=== PATIENT | female | born 1975 ===

== ENCOUNTER → 2020-04-23 | Outpatient (CLI) | payer BC ==
[2020-04-23 14:19] VITALS: BP 135/82; PULSE 64; RESP 18; TEMP 98.2
--- NOTE | 2020-04-23 14:38 | P.HPBAR ---
Bariatric H&P - History & Physicial H&P Date: 04/23/20 History & Physicial: Visit/CC: initial visit; previous band Patient initial contact: Initial weight: Initial weight in pounds: Height: 5 ft 1.5 in Initial BMI: Last weight: Current weight: 85.774 kg Current weight in pounds: 189.60 Current BMI: 35 [place] body weight (based on NIH guidelines): 52.73 kg Excess body weight loss: The patient is a 44 year-old F who presents for Bariatric Assessment. Patient presents today for bariatric follow-up. She's had previous LAP-BAND surgery [place]. This was performed proximal 12 years ago. She's not had an adjustment in 8-10 years. She has complaints of dysphagia and GERD. Past Medical History Past Medical History: GERD/Reflux, Hypertension History of Any Multi-Drug Resistant Organisms: None Reported Past Surgical History: Bariatric Surgery, Hysterectomy Additional Past Surgical History / Comment(s): lap band 2009 in [place] Past Anesthesia/Blood Transfusion Reactions: No Reported Reaction Past Psychological History: No Psychological Hx Reported Smoking Status: Former smoker Past Alcohol Use History: Occasional Additional Past Alcohol Use History / Comment(s): quit smoking 2008 Past Drug Use History: None Reported Surgical - Exam Vital Signs Temp Pulse Resp BP 98.2 F 64 18 135/82 04/23/20 14:10 04/23/20 14:10 04/23/20 14:10 04/23/20 14:10 - General well developed, well nourished, no distress - Eyes PERRL - ENT normal pinna - Neck no masses - Respiratory normal expansion - Cardiovascular Rhythm: regular - Abdomen Abdomen: soft, non tender Bariatric Assessment & Plan Plan: Dysphagia. Patient LAP-BAND was adjusted. She had 1 mL remove her band. She has 2 mL in the band. Patient was scheduled for EGD. We will attempt to have insurance authorization performed for conversion sleeve gastrectomy. Bariatric Checklist Checklist: Plan: Checklist: EGD: 1. Hiatal hernia: 2. H. Pylori: HgbA1c: Vitamin D: Smoking: Primary care physician referral: Dr. Roth Psychiatry clearance: Cardiology clearance: Sleep study: Diet journal: VTE risk score: VTE risk level: Rehab needs at discharge:
[2020-04-24 10:36] VITALS: BMI 35.1
== END | disposition home or self-care (01) ==
LOC: BARWHC3 13:51
PROVIDERS: ATTEND Surgery
DX: Z46.51 Encounter for fitting and adjustment of gastric lap band (principal); R13.10 Dysphagia, unspecified
CPT/HCPCS: 99202

== ENCOUNTER 2020-05-24 08:38 | Day surgery (SDC) | payer BC ==
[2020-05-22 14:04] VITALS: BMI 35.1
[~2020-05-24 08:38] MED LIST: LACTATED RINGERS 1,000 ML IV SCH; LIDOCAINE 1% (10MG/ML) FOR IV START INTRADERMA PRN
[2020-05-24 09:55] VITALS: RESP 16; TEMP 98.2
[2020-05-24] MEDS ORDERED: PROPOFOL 10 MG/ML 20 ML VIAL IV ONE (10:34)
--- NOTE | 2020-05-24 10:35 | P.GSHP ---
History of Present Illness H&P Date: 05/24/20 Chief Complaint: GERD, morbid obesity This a 44-year-old female who presents today for EGD. She is undergoing workup for weight loss surgery. Patient issues with GERD. Her BMI is 35. Past Medical History Past Medical History: GERD/Reflux, Hypertension History of Any Multi-Drug Resistant Organisms: None Reported Past Surgical History: Bariatric Surgery, Hysterectomy Additional Past Surgical History / Comment(s): lap band 2009 in [place] Past Anesthesia/Blood Transfusion Reactions: No Reported Reaction Smoking Status: Former smoker Medications and Allergies Home Medications Medication Instructions Recorded Confirmed Type DULoxetine HCL [Cymbalta] 20 mg PO BID 04/24/20 05/22/20 History busPIRone HCL 15 mg PO BID 04/24/20 05/22/20 History Allergies Allergy/AdvReac Type Severity Reaction Status Date / Time acetaminophen [From [place]] Allergy Rash/Hives Verified 05/24/20 09:37 hydrocodone [From [place]] Allergy Rash/Hives Verified 05/24/20 09:37 Surgical - Exam Vital Signs Temp Pulse Resp BP Pulse Ox 98.2 F 65 16 127/66 99 05/24/20 09:41 05/24/20 09:41 05/24/20 09:41 05/24/20 09:41 05/24/20 09:41 - General well developed, well nourished, no distress - Eyes PERRL - ENT normal pinna - Neck no masses - Respiratory normal expansion - Cardiovascular Rhythm: regular - Abdomen Abdomen: soft, non tender Assessment and Plan Assessment: GERD we'll perform EGD. Morbid obesity, BMI is 35.
--- NOTE | 2020-05-24 10:44 | P.OP ---
Date of Procedure: 05/24/20 Preoperative Diagnosis: GERD, dysphagia Postoperative Diagnosis: Antral gastritis Mild esophagitis LAP-BAND system without inflammation or erosion Procedure(s) Performed: EGD Anesthesia: MAC Surgeon: Rafael Adams Pathology: other (Antrum, esophagus) Condition: stable Disposition: PACU Description of Procedure: The patient's placed on the endoscopy table in the lateral position. She received IV sedation. The gastroscope placed oropharynx and passed into the esophagus. Scope then placed through the pylorus. First and second portion of duodenum appeared normal. Scope was then brought back the antrum this is mildly inflamed. A biopsy was performed. The scope was then retroflexed and remainder of the stomach appeared normal. Patient presents Mack device this without evidence of infection erosion. The GE junction was at 40 cm the distal esophagus appeared inflamed. A biopsies performed. The proximal esophagus appeared normal. Scope was withdrawn for patient.
[2020-05-24 11:04] VITALS: BP 141/67; PULSE 69
== END 2020-05-24 11:51 | disposition home or self-care (01) ==
LOC: ORWHC2ENDO 08:38
PROVIDERS: ATTEND Surgery
DX: K29.70 Gastritis, unspecified, without bleeding (principal); K21.00 Gastro-esophageal reflux disease with esophagitis, without bleeding; E66.01 Morbid (severe) obesity due to excess calories; I10 Essential (primary) hypertension; F41.9 Anxiety disorder, unspecified; Z88.6 Allergy status to analgesic agent; Z88.5 Allergy status to narcotic agent; Z68.35 Body mass index [BMI] 35.0-35.9, adult; Z98.84 Bariatric surgery status; Z90.710 Acquired absence of both cervix and uterus; Z87.891 Personal history of nicotine dependence; Z79.899 Other long term (current) drug therapy
CPT/HCPCS: 88305; 43239; J2704

== ENCOUNTER → 2020-06-04 | Outpatient (CLI) | payer BC ==
[2020-06-04 14:14] VITALS: BP 142/67; PULSE 70; RESP 18; TEMP 97.9; BMI 35.4
--- NOTE | 2020-06-04 14:23 | P.HPBAR ---
Bariatric H&P - History & Physicial H&P Date: 06/04/20 History & Physicial: Visit/CC: follow up Patient initial contact: Initial weight: Initial weight in pounds: Height: 5 ft 1.5 in Initial BMI: Last weight: Current weight: 86.636 kg Current weight in pounds: 191.00 Current BMI: 35.4 [place] body weight (based on NIH guidelines): 48.761 kg Excess body weight loss: The patient is a 44 year-old F who presents for Bariatric Assessment. Patient presents today for lab band follow. Patient has issues with dysphagia. She is requesting to have her LAP-BAND device removed and convert to sleeve gastrectomy. Patient's had chronic issues with GERD and dysphagia. She is unable have her band adjusted. Past Medical History Past Medical History: GERD/Reflux, Hypertension History of Any Multi-Drug Resistant Organisms: None Reported Past Surgical History: Bariatric Surgery, Hysterectomy Additional Past Surgical History / Comment(s): lap band 2009 in [place] Past Anesthesia/Blood Transfusion Reactions: No Reported Reaction Past Psychological History: No Psychological Hx Reported Smoking Status: Former smoker Past Alcohol Use History: Occasional Additional Past Alcohol Use History / Comment(s): quit smoking 2008 Past Drug Use History: None Reported Surgical - Exam Vital Signs Temp Pulse Resp BP 97.9 F 70 18 142/67 06/04/20 14:10 06/04/20 14:10 06/04/20 14:10 06/04/20 14:10 - General well developed, well nourished, no distress - Eyes PERRL - ENT normal pinna - Neck no masses - Respiratory normal expansion - Cardiovascular Rhythm: regular - Abdomen Abdomen: soft, non tender Bariatric Assessment & Plan Plan: Chronic GERD and dysphagia. Patient will attempt Insurance authorization per formed for conversion sleeve gastrectomy due to severe GERD and dysphagia. Bariatric Checklist Checklist: Plan: Checklist: EGD: 1. Hiatal hernia: 2. H. Pylori: HgbA1c: Vitamin D: Smoking: Primary care physician referral: Dr. Roth Psychiatry clearance: Cardiology clearance: Sleep study: Diet journal: VTE risk score: VTE risk level: Rehab needs at discharge:
== END | disposition home or self-care (01) ==
LOC: BARWHC3 13:51
PROVIDERS: ATTEND Surgery
DX: Z46.51 Encounter for fitting and adjustment of gastric lap band (principal); K21.9 Gastro-esophageal reflux disease without esophagitis; F17.200 Nicotine dependence, unspecified, uncomplicated; Z98.84 Bariatric surgery status; Z90.710 Acquired absence of both cervix and uterus
CPT/HCPCS: 99211

== ENCOUNTER → 2020-06-18 | Outpatient (CLI) | payer BC ==
[2020-06-18 14:09] VITALS: BMI 36.2
== END | disposition home or self-care (01) ==
LOC: BARWHC3 08:43
PROVIDERS: ATTEND Surgery
DX: E66.01 Morbid (severe) obesity due to excess calories (principal); Z71.3 Dietary counseling and surveillance; Z68.36 Body mass index [BMI] 36.0-36.9, adult
CPT/HCPCS: 97804

== ENCOUNTER → 2020-08-06 | Outpatient (CLI) | payer BC ==
[2020-08-06 15:05] VITALS: BP 135/69; PULSE 61; TEMP 98; BMI 36.6
--- NOTE | 2020-08-06 15:26 | P.HPBAR ---
Bariatric H&P - History & Physicial H&P Date: 08/06/20 History & Physicial: Visit/CC: presurgical visit Patient initial contact: Initial weight: Initial weight in pounds: Height: 5 ft 1.5 in Initial BMI: Last weight: Current weight: 89.358 kg Current weight in pounds: 197.00 Current BMI: 36.6 [place] body weight (based on NIH guidelines): 48.761 kg Excess body weight loss: The patient is a 44 year-old F who presents for Bariatric Assessment. Patient presents today for presurgical consultation. She is scheduled for surgery in 2 weeks. Her BMI is 37. She has an excellent understanding of the lap scopic sleeve gastrectomy. Past Medical History Past Medical History: GERD/Reflux, Hypertension History of Any Multi-Drug Resistant Organisms: None Reported Past Surgical History: Bariatric Surgery, Hysterectomy Additional Past Surgical History / Comment(s): lap band 2009 in [place] Past Anesthesia/Blood Transfusion Reactions: No Reported Reaction Smoking Status: Former smoker Surgical - Exam Vital Signs Temp Pulse BP 98.0 F 61 135/69 08/06/20 15:04 08/06/20 15:04 08/06/20 15:04 Bariatric Checklist Checklist: Plan: Checklist: EGD: 1. Hiatal hernia: 2. H. Pylori: HgbA1c: Vitamin D: Smoking: Primary care physician referral: Dr. Roth Psychiatry clearance: Cardiology clearance: Sleep study: Diet journal: VTE risk score: VTE risk level: Rehab needs at discharge:
== END ==
LOC: BARWHC3 13:35
PROVIDERS: ATTEND Surgery
DX: Z01.818 Encounter for other preprocedural examination (principal); I10 Essential (primary) hypertension; K21.9 Gastro-esophageal reflux disease without esophagitis; Z98.84 Bariatric surgery status; Z87.891 Personal history of nicotine dependence; Z79.899 Other long term (current) drug therapy
CPT/HCPCS: 99211

== ENCOUNTER → 2020-08-06 | Outpatient (CLI) | payer BC ==
[2020-08-06 15:12] LABS: Basophils % (A) 1 %; Eosinophils # (A) 0.1 k/uL (0-0.7); Eosinophils % (A) 1 %; HCT 42.2 % (34.0-46.0); HGB 14.1 gm/dL (11.4-16.0); Lymphocytes # (A) 2.2 k/uL (1.0-4.8); Lymphocytes % (A) 32 %; MCH 30.6 pg (25.0-35.0); MCHC 33.3 g/dL (31.0-37.0); MCV 91.9 fL (80.0-100.0); Mean Platelet Volume 7.2; Monocytes # (A) 0.3 k/uL (0-1.0); Monocytes % (A) 4 %; Neutrophils # (A) 4.3 k/uL (1.3-7.7); Neutrophils % (A) 61 %; Platelet Count 318 k/uL (150-450); RBC 4.59 m/uL (3.80-5.40)
[2020-08-06 15:35] LABS: ALT 12 U/L (4-34); AST 27 U/L (14-36); African American GFR (CKD) >90 (>60 ml/min/1.73 sqM); Albumin 4.5 g/dL (3.5-5.0); Alkaline Phosphatase 80 U/L (38-126); Anion Gap 7 mmol/L; Blood Urea Nitrogen 11 mg/dL (7-17); Carbon Dioxide 32 mmol/L (22-30); Chloride 100 mmol/L (98-107); Glucose 99 mg/dL (74-99); Non-African American GFR(CKD) >90 (>60 ml/min/1.73 sqM); Potassium 4.1 mmol/L (3.5-5.1); Sodium 139 mmol/L (137-145); Total Bilirubin 0.5 mg/dL (0.2-1.3); Total Protein 7.5 g/dL (6.3-8.2)
[2020-08-07 01:34] LABS: Hemoglobin A1C 5.5 % (4.0-6.0)
== END | disposition home or self-care (01) ==
LOC: LABPAT 14:32
PROVIDERS: ATTEND Surgery
DX: Z01.812 Encounter for preprocedural laboratory examination (principal)
CPT/HCPCS: 36415; 80053; 83036; 85025; 93005

== ENCOUNTER 2020-08-21 06:59 | Inpatient (IN) | payer BC ==
[~2020-08-21 06:59] MED LIST changes: +DEXAMETHASONE SOD PHOSPHATE 4 MG/ML 1 ML VIAL IV ONE; +ENOXAPARIN 40 MG/0.4 ML SYRINGE SQ PRN; -LACTATED RINGERS 1,000 ML IV SCH; +MIDAZOLAM 2 MG/2 ML VIAL IV PRN; +ONDANSETRON 4 MG/2 ML VIAL IVP ONE
[2020-08-21] MEDS: LACTATED RINGERS 1,000 ML IV SCH (07:36)
[2020-08-21] MEDS ORDERED: fentaNYL (PF) 50 MCG/ML 2 ML AMP IV ONE (08:19)
--- NOTE | 2020-08-21 08:38 | P.ANPRN ---
Procedure Note - Anesthesia - Nerve Block Performed Bilateral Erector Spinae Single Time Out Performed: Yes Date of Procedure: 08/21/20 Procedure Start Time: :18 Procedure Stop Time: : Location of Patient: PreOp Indication: Requested by Surgeon Specifically requested for management of pain by DrKrunal: Rafael Adams Sedation Type: Sedate with meaningful contact maintained Preparation: Sterile Prep Position: Prone Needle Types: Pajunk Needle Gauge: 21 Ultrasound used to visualize needle placement: Yes Ultrasound used to observe medication spread: Yes Injectate: Other (see comment) (ropivacaine 0.25% 30 ml per side plus dexamethasone 4 mg per side) Blood Aspirated: No Pain Paresthesia on Injection Noted: No Resistance on Injection: Normal Image Stored and Saved: Yes Events: Uneventful and Well Tolerated (thae block done as part of multimodel pain management ,to minimize post operative opioid use)
--- NOTE | 2020-08-21 09:01 | P.GSHP ---
History of Present Illness H&P Date: 08/21/20 Chief Complaint: Morbid obesity This is a 44-year-old female who presents today for laparoscopic sleeve gastrectomy. Patient has had lifetime problems obesity. Patient has developed severe colitis. Her BMI is 35. Patient understands risks surgery including gastric sleeve obstruction, scarring bleeding and perforation. Past Medical History Past Medical History: Asthma, GERD/Reflux, Hypertension Additional Past Medical History / Comment(s): CLUSTER HEADACHES, LOWER BACK PAIN, HX PALPITATIONS, VARICOSE VEINS, KIDNEY STONES. History of Any Multi-Drug Resistant Organisms: None Reported Past Surgical History: Bariatric Surgery, Hysterectomy Additional Past Surgical History / Comment(s): lap band 2009 in [place], lithotripsy. Past Anesthesia/Blood Transfusion Reactions: No Reported Reaction, Family History of Problems w/ Anesthesia Additional Past Anesthesia/Blood Transfusion Reaction / Comment(s): son=severe ponv Past Psychological History: Anxiety Smoking Status: Former smoker Past Alcohol Use History: Rare Additional Past Alcohol Use History / Comment(s): quit smoking 2008, smoked off and on since 17 yrs old, 2-3 cigarettes/day Past Drug Use History: None Reported - Past Family History Mother Family Medical History: Cancer Additional Family Medical History / Comment(s): breast cancer Father Family Medical History: Deep Vein Thrombosis (DVT) Medications and Allergies Home Medications Medication Instructions Recorded Confirmed Type DULoxetine HCL [Cymbalta] 20 mg PO BID 04/24/20 08/21/20 History busPIRone HCL 15 mg PO BID PRN 04/24/20 08/21/20 History Hydrochlorothiazide 12.5 mg PO DAILY 06/18/20 08/21/20 History [hydroCHLOROthiazide] Albuterol Inhaler [Ventolin Hfa 1 puff INHALATION DIRECTED PRN 08/15/20 08/21/20 History Inhaler] Albuterol Nebulizer 1 dose INHALATION DIRECTED PRN 08/15/20 08/21/20 History Ascorbic Acid [Vitamin C] 250 mg PO DAILY 08/15/20 08/21/20 History [id number] 2 each PO DIRECTED PRN 08/15/20 08/21/20 History [Excedrin] Cholecalciferol (Vitamin D3) 4,000 unit PO DAILY 08/15/20 08/21/20 History [Vitamin D3 (4,000 Iu)] Omeprazole Magnesium [PriLOSEC OTC] 20 mg PO DAILY PRN 08/15/20 08/21/20 History Allergies Allergy/AdvReac Type Severity Reaction Status Date / Time hydrocodone [From [place]] Allergy Itching Verified 08/21/20 07:13 Surgical - Exam Vital Signs Temp Pulse Resp BP Pulse Ox 97.2 F L 71 16 145/66 96 08/21/20 07:35 08/21/20 07:35 08/21/20 07:35 08/21/20 07:35 08/21/20 07:35 - General well developed, well nourished, no distress - Eyes PERRL - ENT normal pinna - Neck no masses - Respiratory normal expansion - Cardiovascular Rhythm: regular - Abdomen Abdomen: soft, non tender Assessment and Plan Assessment: RBC, BMI 35. Patient will undergo laparoscopic sleeve gastrectomy today.
[2020-08-21] MEDS ORDERED: ROCURONIUM 10 MG/ML (5 ML VIAL) IV ONE (09:23)
[2020-08-21] MEDS ORDERED: PROPOFOL 10 MG/ML 20 ML VIAL IV ONE (09:23)
[2020-08-21] MEDS ORDERED: GLYCOPYRROLATE 0.2 MG/ML 2 ML VIAL ONE (09:23)
[2020-08-21] MEDS ORDERED: KETAMINE 10 MG/ML 20 ML VIAL ONE (09:23)
[2020-08-21] MEDS ORDERED: MIDAZOLAM 2 MG/2 ML VIAL ONE (09:23)
[2020-08-21] MEDS ORDERED: SODIUM CHLORIDE 0.9% (PF) 10 ML VIAL ONE (09:23)
[2020-08-21] MEDS ORDERED: NEOSTIGMINE 1 MG/ML 10 ML VIAL ONE (09:23)
[2020-08-21] MEDS ORDERED: LIDOCAINE 1% INJ 10MG/ML (20 ML MDV) ONE (09:23)
[2020-08-21] MEDS ORDERED: SUCCINYLCHOLINE CHLORIDE 100 MG/5 ML SYR IV ONE (09:23)
[2020-08-21] MEDS ORDERED: KETOROLAC 15 MG/ML 1 ML VIAL ONE (09:23)
[2020-08-21] MEDS ORDERED: fentaNYL (PF) 50 MCG/ML 2 ML AMP ONE (09:23)
[2020-08-21] MEDS ORDERED: DEXAMETHASONE SOD PHOSPHATE 4 MG/ML 1 ML VIAL ONE (09:23)
[2020-08-21] MEDS ORDERED: ROPIVACAINE 5 MG/ML 30 ML VIAL ONE (09:23)
[2020-08-21] MEDS ORDERED: BUPIVACAIN-EPI 0.5%-1:200,000 30 ML VIAL SQ ONE (09:51)
[2020-08-21] MEDS ORDERED: LACTATED RINGERS 1,000 ML IV ONE ×3 (10:00→12:10)
[2020-08-21] MEDS ORDERED: diphenhydrAMINE 50 MG/ML 1 ML VIAL IVP PRN (11:13)
[2020-08-21] MEDS ORDERED: HYOSCYAMINE ORAL DROPS 1.875 MG/15 ML BOTTLE PO PRN (11:13)
[2020-08-21] MEDS ORDERED: ONDANSETRON 4 MG/2 ML VIAL IVP PRN (11:13)
[2020-08-21] MEDS ORDERED: SIMETHICONE 40 MG/0.6 ML DROPS 2,000 MG/30 ML BOTTLE PO PRN (11:13)
[2020-08-21] MEDS ORDERED: NALOXONE 0.4 MG/ML 1 ML VIAL IV PRN (11:13)
--- NOTE | 2020-08-21 11:13 | P.OP ---
Date of Procedure: 08/21/20 Preoperative Diagnosis: Morbid obesity GERD, dysphagia Postoperative Diagnosis: Morbid obesity GERD, dysphagia Procedure(s) Performed: Laparoscopic removal of LAP-BAND system Gastric sleeve Anesthesia: HAL Surgeon: Rafael Adams Estimated Blood Loss (ml): 10 Pathology: other (Stomach) Condition: stable Disposition: PACU Description of Procedure: The patient was placed on the operating room table in the supine position. She received general anesthesia and then was placed in dorsal lithotomy position. Her abdomen was prepped and draped in sterile fashion. The skin incision sites were anesthetized 1% local Xylocaine. The skin was incised the LAP-BAND port site. Using blunt and sharp dissection with cautery the LAP-BAND port was dissected free. It is noticeable PEG tube was broken. Using a 5 mm optical trocar the pleural cavities and under direct visualization. The abdomen was insufflated after adequate insufflation another fibrillar trocar is placed in the right epigastric position and then a fibrillar trocar is placed in the right lateral and left lateral position and then a 15 mm trochars placed at the super umbilical position. The LAP-BAND device was visualized. The adhesions LAP-BAND device wasn't cut and then the LAP-BAND anterior gastric plication was divided in her sharp dissection. Care was taken to identify and preserve stomach. The LAP-BAND was then cut and then withdrawn from the stomach extracted through the 15 mm trocar site. The greater curvature of the stomach was then dissected using the Harmonic scissors. The dissection occurred approximately 5 cm from the pylorus to the level of the left edita. There was no hiatal hernia seen. At this point a 40- [place] bougie dilator was placed the oropharynx and passed into the esophagus and into the stomach by the PULMONOLOGY PHYSICIAN. The sleeve gastrectomy was performed by using the powered echelon stapler with a seam guard buttress material. Sequential firings of the stapler were performed. The gastric remnant was then brought out through the 15 mm trocar site. The dilator was withdrawn. And a orogastric tube was replaced into the stomach. The stomach was insufflated with 200 mL of methylene blue normal saline. There was no evidence of extravasation. The abdomen was irrigated there is no bleeding seen. The Godwin-Nayla device was used to close the 15 mm trocar with 0 Vicryl. Skin was closed with interrupted 3-0 Monocryl sutures once the trochars withdrawn. Dermabond dressing was applied. Patient was sent to recovery in stable condition.
--- NOTE | 2020-08-21 11:17 | XR ---
EXAMINATION TYPE: XR abdomen 1V DATE OF EXAM: 08/21/2020 COMPARISON: NONE HISTORY: Possible foreign body TECHNIQUE: One view abdominal series FINDINGS: The osseous structures are intact. The bowel gas pattern is nonspecific. There is a metallic density overlying the right abdomen suspicious for foreign body.. Report was immediately called to the OR ro om at 11:14 AM 08/21/2020. IMPRESSION: 1. Findings are suggestive of foreign body involving the right lateral abdomen just superior to the i liac crest..
[2020-08-21] MEDS: HYDROmorphone 0.5 MG/0.5 ML SYRINGE IVP PRN ×4 (11:33→12:40)
[2020-08-21] MEDS ORDERED: ONDANSETRON 4 MG/2 ML VIAL IVP ONE (12:14)
[2020-08-21] MEDS ORDERED: ALBUTEROL HFA INHALER INHALATION PRN ×2 (12:51→13:16)
[2020-08-21] MEDS ORDERED: busPIRone HCl 5 MG TAB PO PRN (12:51)
[2020-08-21] MEDS ORDERED: ALBUTEROL NEBULIZER INHALATION PRN (12:51)
[2020-08-21] MEDS: KETOROLAC 15 MG/ML 1 ML VIAL IVP SCH ×2 (13:27→16:29)
--- NOTE | 2020-08-21 14:04 | P.CONS ---
History of Present Illness - Reason for Consult Hypertension - History of Present Illness Patient is a 44-year-old the female admitted for lab and removal and gastric sleeve surgery. Successfully underwent surgery patient is still comparing of a pain diffusely in the abdomen probably secondary to the a and gas inside the abdomen. Patient just received 2 mg of Dilaudid. Patient is bit nauseous as well. Patient is just drowsy at this time I evaluated the patient when she arrived to the floor from postop. Review of Systems REVIEW OF SYSTEMS: CONSTITUTIONAL: No fever, no malaise, no fatigue. HEENT: No recent visual problems or hearing problems. Denied any sore throat. CARDIOVASCULAR: No chest pain, orthopnea, PND, no palpitations, no syncope. PULMONARY: No shortness of breath, no cough, no hemoptysis. GASTROINTESTINAL: As mentioned in HPI NEUROLOGICAL: No headaches, no weakness, no numbness. HEMATOLOGICAL: Denies any bleeding or petechiae. GENITOURINARY: Denies any burning micturition, frequency, or urgency. MUSCULOSKELETAL/RHEUMATOLOGICAL: Denies any joint pain, swelling, or any muscle pain. ENDOCRINE: Denies any polyuria or polydipsia. The rest of the 14-point review of systems is negative. Past Medical History Past Medical History: Asthma, GERD/Reflux, Hypertension Additional Past Medical History / Comment(s): CLUSTER HEADACHES, LOWER BACK PAIN, HX PALPITATIONS, VARICOSE VEINS, KIDNEY STONES. History of Any Multi-Drug Resistant Organisms: None Reported Past Surgical History: Bariatric Surgery, Hysterectomy Additional Past Surgical History / Comment(s): lap band 2009 in [place], lithotripsy. lap band removal and gastric sleeve 08/21/2020 Past Anesthesia/Blood Transfusion Reactions: No Reported Reaction, Family History of Problems w/ Anesthesia Additional Past Anesthesia/Blood Transfusion Reaction / Comm: son=severe ponv Past Psychological History: Anxiety Smoking Status: Former smoker Past Alcohol Use History: Rare Additional Past Alcohol Use History / Comment(s): quit smoking 2008, smoked off and on since 17 yrs old, 2-3 cigarettes/day Past Drug Use History: None Reported - Past Family History Mother Family Medical History: Cancer Additional Family Medical History / Comment(s): breast cancer Father Family Medical History: Deep Vein Thrombosis (DVT) Medications and Allergies Home Medications Medication Instructions Recorded Confirmed Type DULoxetine HCL [Cymbalta] 20 mg PO BID 04/24/20 08/21/20 History busPIRone HCL 15 mg PO BID PRN 04/24/20 08/21/20 History Hydrochlorothiazide 12.5 mg PO DAILY 06/18/20 08/21/20 History [hydroCHLOROthiazide] Albuterol Inhaler [Ventolin Hfa 1 puff INHALATION DIRECTED PRN 08/15/20 08/21/20 History Inhaler] Albuterol Nebulizer 1 dose INHALATION DIRECTED PRN 08/15/20 08/21/20 History Ascorbic Acid [Vitamin C] 250 mg PO DAILY 08/15/20 08/21/20 History [id number] 2 each PO DIRECTED PRN 08/15/20 08/21/20 History [Excedrin] Cholecalciferol (Vitamin D3) 4,000 unit PO DAILY 08/15/20 08/21/20 History [Vitamin D3 (4,000 Iu)] Omeprazole Magnesium [PriLOSEC OTC] 20 mg PO DAILY PRN 08/15/20 08/21/20 History Allergies Allergy/AdvReac Type Severity Reaction Status Date / Time hydrocodone [From [employer]] Allergy Itching Verified 08/21/20 07:13 Physical Exam Vitals: Vital Signs Temp Pulse Pulse Resp BP Pulse Ox 08/21/20 13:05 81 18 131/56 97 08/21/20 12:50 79 16 124/70 98 08/21/20 12:30 70 16 119/53 98 08/21/20 12:15 76 16 133/50 98 08/21/20 12:00 72 16 138/57 98 08/21/20 11:45 69 16 133/60 97 08/21/20 11:30 65 18 140/58 99 08/21/20 11:14 97.7 F 70 12 141/59 99 08/21/20 08:36 68 16 132/61 95 08/21/20 07:35 97.2 F L 71 16 145/66 96 Intake and Output 08/20/20 08/21/20 08/21/20 22:59 06:59 14:59 Intake Total 2150 Output Total 20 Balance 2130 Intake: IV 2150 Output: Estimated Blood Loss 20 Other: Weight 87.2 kg PHYSICAL EXAMINATION: GENERAL: The patient is alert and oriented x3, patient is in distress because of abdominal pain and nausea. Well developed, well nourished. HEENT: Pupils are round and equally reacting to light. EOMI. No scleral icterus. No conjunctival pallor. Normocephalic, atraumatic. No pharyngeal erythema. No thyromegaly. CARDIOVASCULAR: S1 and S2 present. No murmurs, rubs, or gallops. PULMONARY: Chest is clear to auscultation, no wheezing or crackles. ABDOMEN: Distended sluggish bowel sounds mild diffuse tenderness no rebound or rigidity. MUSCULOSKELETAL: No joint swelling or deformity. EXTREMITIES: No cyanosis, clubbing, or pedal edema. NEUROLOGICAL: Gross neurological examination did not reveal any focal deficits. SKIN: No rashes. Assessment and Plan Plan: -Abdominal pain: Secondary to surgery which is expected to improve continue with present pain medications and antinausea medications. Ambulation will improve pain. -Hypertension: Patient is on hydrochlorothiazide which will be held temporarily to prevent perioperative hypotension patient is an elderly low-dose. -Gastroesophageal reflux disease: Patient will be continued on Protonix -Asthma without any acute exacerbation -Depression/anxiety: Continue her antidepressants. -DVT prophylaxis Lovenox
[2020-08-21] MEDS: ALBUTEROL NEBULIZED 2.5 MG/3 ML INHALATION SCH ×3 (16:08→19:57)
[2020-08-21] MEDS: 0.9% NACL WITH KCL 20 MEQ/L 1,000 ML IV SCH ×2 (16:31→22:49)
[2020-08-21] MEDS: HYDROmorphone 1 MG/ML 1 ML SYRINGE IVP PRN ×2 (19:09→22:28)
[2020-08-21] MEDS: ENOXAPARIN 40 MG/0.4 ML SYRINGE SQ SCH (22:28)
[2020-08-21] MEDS: DULoxetine HCL 20 MG CAPSULE.DR PO SCH (22:46)
[2020-08-22] MEDS: KETOROLAC 15 MG/ML 1 ML VIAL IVP SCH ×5 (01:39→23:07)
[2020-08-22] MEDS: 0.9% NACL WITH KCL 20 MEQ/L 1,000 ML IV SCH ×2 (01:45→05:36)
[2020-08-22] MEDS: HYDROmorphone 1 MG/ML 1 ML SYRINGE IVP PRN ×2 (03:02→10:41)
[2020-08-22] MEDS: LACTATED RINGERS 1,000 ML IV SCH (04:21)
[2020-08-22] MEDS: ALBUTEROL NEBULIZED 2.5 MG/3 ML INHALATION SCH ×4 (07:59→20:18)
[2020-08-22] MEDS: 1: MVI, ADULT NO.4 WITH VIT K 10 ML, THIAMINE 100 MG, FOLIC ACID 1 MG, POTASSIUM CHLORID IV SCH ×18 (08:52→21:07)
[2020-08-22] MEDS: PANTOPRAZOLE 40 MG/10 ML VIAL IV SCH (08:53)
[2020-08-22 09:09] LABS: Basophils # (A) 0.01 X 10*3/uL (0.00-0.10); Basophils % (A) 0.1 %; Eosinophils # (A) 0 X 10*3/uL (0.04-0.35); Eosinophils % (A) 0 %; HCT 36.8 % (37.2-46.3); Lymphocytes # (A) 1.62 X 10*3/uL (0.90-5.00); Lymphocytes % (A) 14.3 %; MCH 30.5 pg (27.0-32.0); MCHC 32.6 g/dL (32.0-37.0); MCV 93.4 fL (80.0-97.0); Mean Platelet Volume 10.7 fL (9.5-12.2); Monocytes # (A) 1.11 X 10*3/uL (0.20-1.00); Monocytes % (A) 9.8 %; Neutrophils # (A) 8.51 X 10*3/uL (1.80-7.70); Neutrophils % (A) 75.4 %; Platelet Count 349 X 10*3/uL (140-440); RBC 3.94 X 10*6/uL (4.10-5.20); RDW 12.6 % (11.5-14.5); WBC 11.29 X 10*3/uL (4.50-10.00)
[2020-08-22 09:10] LABS: African American GFR (CKD) 127.6 (60.0-200.0); Anion Gap 6.9 mmol/L (4.00-12.00); Calcium 8.5 mg/dL (8.7-10.3); Carbon Dioxide 29.1 mmol/L (21.6-31.8); Magnesium 1.8 mg/dL (1.5-2.4); Non-African American GFR(CKD) 110.1 (60.0-200.0); Phosphorus 3.2 mg/dL (2.4-5.1); Potassium 5.1 mmol/L (3.5-5.5)
[2020-08-22] MEDS: ENOXAPARIN 40 MG/0.4 ML SYRINGE SQ SCH ×2 (10:45→20:08)
[2020-08-22 11:33] VITALS: BMI 34.0
--- NOTE | 2020-08-22 11:44 | FL ---
EXAMINATION TYPE: FL UGI DATE OF EXAM: 08/22/2020 COMPARISON: None HISTORY: Postop bariatric surgery TECHNIQUE: A limited single contrast UGI study is performed. FINDINGS: Fluoroscopy time: 34 seconds Images: 104 Contrast passes from the distal esophagus through the gastric sleeve with mild hesitancy. No extravas ation of contrast is evident. Patient however did exhibit pain during swallowing as the contrast pass ed from the distal esophagus into the stomach. This diminished with a smaller swallow. No free air is noted during this examination. Overhead radiographs were obtained which are unremarkable. IMPRESSIONS: 1. No extravasation of contrast with swallowing. There is mild hesitancy passing through the gastric sleeve. The pain was elicited as the contrast entered the stomach with each swallow which was diminis hed with diminished swallowing volume.
--- NOTE | 2020-08-22 12:51 | P.PN ---
Subjective Progress Note Date: 08/22/20 - Reason for Consult Hypertension - History of Present Illness Patient is a 44-year-old the female admitted for lab and removal and gastric sleeve surgery. Successfully underwent surgery patient is still comparing of a pain diffusely in the abdomen probably secondary to gas inside the abdomen. Patient just received 2 mg of Dilaudid. Patient is bit nauseous as well. Patient is just drowsy at this time I evaluated the patient when she arrived to the floor from postop. 08/22/2020 Patient is seen and evaluated in follow-up recently underwent gastric sleeve procedure and is being closely monitored. Patient states she is burping mostly but reports to having some passing of gas. Patient denies any bowel movements at this time. Patient is nothing by mouth currently but hoping to advance to clear liquids today. Patient denies any nausea or vomiting. Patient denies any chest pain, shortness of breath, or palpitations. Patient is afebrile. Patient was having some shallow breaths and was on 2 L of oxygen although is currently on room air and tolerating. Patient does have history of asthma and does use inhalers as needed in the outpatient setting. Review of systems: Constitutional: No reports of fatigue, fever, or chills Cardiovascular: No reports of chest pain or palpitations Respiratory: No reports of shortness of breath or cough GI: No reports of nausea, vomiting, or diarrhea, reports to passing some gas and belching with no reports of bowel movement, reports continued abdominal tenderness on palpation and with cough : No reports of dysuria or retention Neurovascular: No reports of weakness or numbness All medications have been reviewed Objective - Vital Signs Vital signs: Vital Signs Temp 97.8 F 08/22/20 07:31 Pulse 78 08/22/20 07:31 Resp 18 08/22/20 07:31 BP 121/68 08/22/20 07:31 Pulse Ox 100 08/22/20 07:58 Intake & Output 08/21/20 08/22/20 08/22/20 18:59 06:59 18:59 Intake Total 0 Output Total 20 Balance 2129 Weight 87.2 kg Intake: IV 2149 Output: Estimated Blood Loss 20 Other: Voiding Method Toilet # Voids 2 - Exam GENERAL: The patient is alert and oriented x3, appears to be in no acute distress. Well developed, well nourished. HEENT: Pupils are round and equally reacting to light. EOMI. No scleral icterus. No conjunctival pallor. Normocephalic, atraumatic. No pharyngeal erythema. No thyromegaly. CARDIOVASCULAR: S1 and S2 present. No murmurs, rubs, or gallops. PULMONARY: Chest is clear to auscultation, no wheezing or crackles. ABDOMEN: Soft, obese, sluggish bowel sounds mild diffuse tenderness no rebound or rigidity. MUSCULOSKELETAL: No joint swelling or deformity. EXTREMITIES: No cyanosis, clubbing, or pedal edema. NEUROLOGICAL: Gross neurological examination did not reveal any focal deficits. SKIN: No rashes. - Labs CBC & Chem 7: 08/22/20 05:57 08/22/20 05:57 Labs: Abnormal Lab Results - Last 24 Hours (Table) 08/22/20 08/22/20 Range/Units 05:57 05:57 WBC 11.29 H (4.50-10.00) X 10*3/uL RBC 3.94 L (4.10-5.20) X 10*6/uL Hct 36.8 L (37.2-46.3) % Neutrophils # 8.51 H (1.80-7.70) X 10*3/uL Monocytes # 1.11 H (0.20-1.00) X 10*3/uL Eosinophils # 0 L (0.04-0.35) X 10*3/uL Calcium 8.5 L (8.7-10.3) mg/dL Assessment and Plan Assessment: -Abdominal pain: Secondary to surgery which is expected to improve continue with present pain medications and anti-nausea medications. Ambulation will improve pain. -Hypertension: Patient is on hydrochlorothiazide which will continue to hold to prevent postoperative hypotension and monitor closely -Gastroesophageal reflux disease: Patient will be continued on Protonix -Asthma without any acute exacerbation, inhalers and breathing treatments as needed -Depression/anxiety: Continue her antidepressants. -DVT prophylaxis Lovenox Plan: Continue current medications with attempts to avoid narcotics. Instructed the patient to increase activity as tolerated, patient was nothing by mouth but starting clear liquids. Incentive spirometer at the bedside and instructed the patient continue using at least 10 times every hour while awake. Patient does have a history of asthma and does have inhalers in the outpatient setting. Patient does have inhalational treatments ordered and will continue. Will continue to follow along with surgery during hospitalization. Thank you for this consultation.
[2020-08-22] MEDS: DULoxetine HCL 20 MG CAPSULE.DR PO SCH ×2 (13:54→20:08)
[2020-08-22] MEDS ORDERED: HYDROcodone/APAP 15 ML SOLUTION PO PRN (15:20)
--- NOTE | 2020-08-22 15:28 | P.PN ---
Subjective Progress Note Date: 08/22/20 CHIEF COMPLAINT: Morbid obesity HISTORY OF PRESENT ILLNESS: Patient is status post laparoscopic removal of lap band system and laparoscopic sleeve gastrectomy. Patient's upper GI had shown no extra visitation of contrast with swallowing. There is mild hesitancy passing through the gastric sleeve. The pain was elicited as the contrast entered the stomach with each swallow which was diminished with diminishing swallowing volume. Patient is complaining of abdominal pain in the left upper quadrant around her incision. She is passing gas. Urinating without difficulty. She did have some nausea through the evening. She's currently started on bariatric clears. WBC is 11.29 PHYSICAL EXAM: VITAL SIGNS: Reviewed. GENERAL: Well-developed in no acute distress. HEENT: No sclera icterus. Extraocular movements grossly intact. Moist buccal mucosa. Head is atraumatic, normocephalic. ABDOMEN: Soft. Nondistended. Incision sites clean dry and intact NEUROLOGIC: Alert and oriented. Cranial nerves II through XII grossly intact. ASSESSMENT: 1. Morbid obesity patient is status post laparoscopic removal of lap band system and laparoscopic sleeve gastrectomy 2 GERD 3 dysphagia PLAN: -Continue supportive care -Start bariatric clear liquid diet -Continue IV fluids -Add liquid [place] for pain control. Patient does have a hydrocodone ALLERGY of itching reported. However, she has taken liquid [place] in the past without problems. -Encouraged patient ambulate and use incentive spirometer -Anticipate discharge tomorrow Physician Casting Machine Adjuster note has been reviewed by physician. Signing provider agrees with the documented findings, assessment, and plan of care. Objective - Vital Signs Vital signs: Vital Signs Temp 97.8 F 08/22/20 07:31 Pulse 78 08/22/20 07:31 Resp 18 08/22/20 07:31 BP 121/68 08/22/20 07:31 Pulse Ox 95 08/22/20 13:41 Intake & Output 08/21/20 08/22/20 08/22/20 18:59 06:59 18:59 Intake Total 2150 Output Total 20 Balance 2129 Weight 87.2 kg 87.2 kg Intake: IV 0 Output: Estimated Blood Loss 20 Other: Voiding Method Toilet # Voids 2 - Labs CBC & Chem 7: 08/22/20 05:57 08/22/20 05:57 Labs: Abnormal Lab Results - Last 24 Hours (Table) 08/22/20 08/22/20 Range/Units 05:57 05:57 WBC 11.29 H (4.50-10.00) X 10*3/uL RBC 3.94 L (4.10-5.20) X 10*6/uL Hct 36.8 L (37.2-46.3) % Neutrophils # 8.51 H (1.80-7.70) X 10*3/uL Monocytes # 1.11 H (0.20-1.00) X 10*3/uL Eosinophils # 0 L (0.04-0.35) X 10*3/uL Calcium 8.5 L (8.7-10.3) mg/dL
[2020-08-23] MEDS: LACTATED RINGERS 1,000 ML IV SCH (00:14)
[2020-08-23] MEDS: KETOROLAC 15 MG/ML 1 ML VIAL IVP SCH (05:17)
[2020-08-23] MEDS: 1: MVI, ADULT NO.4 WITH VIT K 10 ML, THIAMINE 100 MG, FOLIC ACID 1 MG, POTASSIUM CHLORID IV SCH ×6 (05:39)
[2020-08-23] MEDS: ALBUTEROL NEBULIZED 2.5 MG/3 ML INHALATION SCH ×2 (07:45→11:06)
[2020-08-23] MEDS: PANTOPRAZOLE 40 MG/10 ML VIAL IV SCH (07:53)
[2020-08-23] MEDS: ENOXAPARIN 40 MG/0.4 ML SYRINGE SQ SCH (07:53)
[2020-08-23] MEDS: DULoxetine HCL 20 MG CAPSULE.DR PO SCH (07:53)
[2020-08-23] MEDS ORDERED: bisacodyL 5 MG TABLET.DR PO PRN (08:00)
[2020-08-23 08:21] VITALS: RESP 18
[2020-08-23 09:49] LABS: Basophils % (A) 0 %; Eosinophils % (A) 1 %; HCT 34.9 % (34.0-46.0); HGB 11.8 gm/dL (11.4-16.0); Lymphocytes # (A) 2.1 k/uL (1.0-4.8); Lymphocytes % (A) 29 %; MCH 31.4 pg (25.0-35.0); MCHC 33.8 g/dL (31.0-37.0); MCV 92.8 fL (80.0-100.0); Mean Platelet Volume 7.7; Monocytes # (A) 0.4 k/uL (0-1.0); Monocytes % (A) 6 %; Neutrophils # (A) 4.7 k/uL (1.3-7.7); Neutrophils % (A) 64 %; Platelet Count 283 k/uL (150-450); RBC 3.77 m/uL (3.80-5.40); RDW 12.8 % (11.5-15.5); WBC 7.3 k/uL (3.8-10.6)
[2020-08-23 10:00] LABS: African American GFR (CKD) >90 (>60 ml/min/1.73 sqM); Anion Gap 5 mmol/L; Blood Urea Nitrogen 10 mg/dL (7-17); Calcium 8.7 mg/dL (8.4-10.2); Carbon Dioxide 27 mmol/L (22-30); Chloride 107 mmol/L (98-107); Glucose 84 mg/dL (74-99); Non-African American GFR(CKD) >90 (>60 ml/min/1.73 sqM); Potassium 4.8 mmol/L (3.5-5.1); Sodium 139 mmol/L (137-145)
--- NOTE | 2020-08-23 14:07 | P.PN ---
Subjective Progress Note Date: 08/23/20 - Reason for Consult Hypertension - History of Present Illness Patient is a 44-year-old the female admitted for lab and removal and gastric sleeve surgery. Successfully underwent surgery patient is still comparing of a pain diffusely in the abdomen probably secondary to gas inside the abdomen. Patient just received 2 mg of Dilaudid. Patient is bit nauseous as well. Patient is just drowsy at this time I evaluated the patient when she arrived to the floor from postop. 08/22/2020 Patient is seen and evaluated in follow-up recently underwent gastric sleeve procedure and is being closely monitored. Patient states she is burping mostly but reports to having some passing of gas. Patient denies any bowel movements at this time. Patient is nothing by mouth currently but hoping to advance to clear liquids today. Patient denies any nausea or vomiting. Patient denies any chest pain, shortness of breath, or palpitations. Patient is afebrile. Patient was having some shallow breaths and was on 2 L of oxygen although is currently on room air and tolerating. Patient does have history of asthma and does use inhalers as needed in the outpatient setting. 08/23/2020 Patient is seen and evaluated in follow-up this morning continues to have acid reflux and is currently maintained on clear liquids and tolerating. Patient denies any nausea or vomiting. Patient states she is passing some gas although mostly belching. Patient denies any bowel movements at this time. Patient states she has been up most of the night and has been walking the halls and hoping she can potentially go home today. Patient does take low-dose of hydrochlorothiazide at home although will continue to hold and instructed to monitor blood pressure and follow-up with primary care provider upon discharge. Review of systems: Constitutional: No reports of fatigue, fever, or chills Cardiovascular: No reports of chest pain or palpitations Respiratory: No reports of shortness of breath or cough GI: No reports of nausea, vomiting, or diarrhea, reports to passing some gas and belching with no reports of bowel movement : No reports of dysuria or retention Neurovascular: No reports of weakness or numbness All medications have been reviewed Objective - Vital Signs Vital signs: Vital Signs Temp 98.4 F 08/23/20 07:23 Pulse 69 08/23/20 07:23 Resp 18 08/23/20 07:23 BP 113/67 08/23/20 07:23 Pulse Ox 99 08/23/20 07:24 Intake & Output 08/22/20 08/23/20 08/23/20 18:59 06:59 18:59 Intake Total 1800 Balance 1800 Weight 87.2 kg Intake: IV 1800 0.9% NaCl with KCl 20 Meq 1800 /l 1,000 ml @ 150 mls/hr IV .[id number] MARY Rx#: [id number] Intake, IV Titration Amount Mvi, Adult No.4 with Vit K 10 ml Thiamine 100 mg Folic Acid 1 mg Potassium Chloride 20 meq In Sodium Chloride 0.9% 1, 000 ml @ 100 mls/hr IV . BY DURATION MARY Rx#: [id number] Other: Voiding Method Toilet # Voids 5 2 - Exam GENERAL: The patient is alert and oriented x3, appears to be in no acute distress. Well developed, well nourished. HEENT: Pupils are round and equally reacting to light. EOMI. No scleral icterus. No conjunctival pallor. Normocephalic, atraumatic. No pharyngeal erythema. No thyromegaly. CARDIOVASCULAR: S1 and S2 present. No murmurs, rubs, or gallops. PULMONARY: Chest is clear to auscultation, no wheezing or crackles. ABDOMEN: Soft, obese, bowel sounds noted, mild diffuse tenderness no rebound or rigidity. MUSCULOSKELETAL: No joint swelling or deformity. EXTREMITIES: No cyanosis, clubbing, or pedal edema. NEUROLOGICAL: Gross neurological examination did not reveal any focal deficits. SKIN: No rashes. - Labs CBC & Chem 7: 08/23/20 09:18 08/23/20 09:18 Assessment and Plan Assessment: -Abdominal pain: Secondary to surgery which is expected to improve continue with present pain medications and anti-nausea medications. Ambulation will improve pain. -Hypertension: Patient is on hydrochlorothiazide which will continue to hold to prevent postoperative hypotension and monitor closely patient will be instructed to resume in the outpatient setting after follow-up with primary care provider -Gastroesophageal reflux disease: Patient will be continued on Protonix -Asthma without any acute exacerbation, inhalers and breathing treatments as needed -Depression/anxiety: Continue her antidepressants. -DVT prophylaxis Lovenox Plan: Continue current medications with attempts to avoid narcotics. Instructed the patient to increase activity as tolerated, patient is on bariatric clear liquids and tolerating. Incentive spirometer at the bedside and instructed the patient continue using at least 10 times every hour while awake. Patient does have a history of asthma and does have inhalers in the outpatient setting. Patient does have inhalational treatments ordered and will continue. Will continue to follow along with surgery during hospitalization. Thank you for this consultation.
--- NOTE | 2020-08-23 14:08 | P.DS ---
Providers Date of admission: 08/21/20 06:59 Expected date of discharge: 08/23/20 Attending physician: Rafael Adams Consults: 08/21/20 11:13 Consult Physician Routine Consulting Provider: Yuliya Preciado Consult Reason/Comments: Medical management Do you want consulting provider notified?: Yes Primary care physician: [place] Hospital Course: Discharge diagnosis 1. Morbid obesity patient is status post laparoscopic removal of lap band system and laparoscopic sleeve gastrectomy 2 GERD 3 dysphagia Hospital course This is a 44-year-old female with known morbid obesity, GERD and dysphagia. She is status post laparoscopic removal of lap band system and laparoscopic sleeve gastrectomy. Patient tolerated surgery well. Her upper GI showed mild hesitancy passing through the gastric sleeve. Patient was started on bariatric clear liquid diet. She has tolerated the diet. She is passing gas and having bowel movements. She is up and ambulating. Her pain is controlled. She is stable for discharge. Please refer to chart for any further details. Physician Sustainability Purchasing Agent note has been reviewed by physician. Signing provider agrees with the documented findings, assessment, and plan of care. Patient Condition at Discharge: Stable Plan - Discharge Summary Discharge Rx Participant: Yes New Discharge Prescriptions: New bisacodyL [Dulcolax] 5 mg PO DAILY PRN #10 tablet. PRN Reason: Constipation Simethicone 40 mg/0.6 ml Drops [Mylicon Drops] 40 mg PO PCHS PRN #30 ml PRN Reason: Gas Omeprazole [PriLOSEC] 40 mg PO DAILY #30 capsule. Ondansetron Odt [Zofran Odt] 4 mg PO Q8HR PRN #9 tab PRN Reason: Nausea HYDROcodone/APAP [[place] Elixir 7.5-325Mg/15Ml] 15 ml PO Q8H PRN #135 ml PRN Reason: Pain Continue busPIRone HCL 15 mg PO BID PRN PRN Reason: Anxiety DULoxetine HCL [Cymbalta] 20 mg PO BID Albuterol Inhaler [Ventolin Hfa Inhaler] 1 puff INHALATION DIRECTED PRN PRN Reason: Shortness Of Breath Albuterol Nebulizer 1 dose INHALATION DIRECTED PRN PRN Reason: Shortness Of Breath Discontinued [id number] [Excedrin] 2 each PO DIRECTED PRN PRN Reason: Headache Omeprazole Magnesium [PriLOSEC OTC] 20 mg PO DAILY PRN PRN Reason: Heartburn Cholecalciferol (Vitamin D3) [Vitamin D3 (4,000 Iu)] 4,000 unit PO DAILY Ascorbic Acid [Vitamin C] 250 mg PO DAILY No Action Hydrochlorothiazide [hydroCHLOROthiazide] 12.5 mg PO DAILY Discharge Medication List DULoxetine HCL [Cymbalta] 20 mg PO BID 04/24/20 [History] busPIRone HCL 15 mg PO BID PRN 04/24/20 [History] Hydrochlorothiazide [hydroCHLOROthiazide] 12.5 mg PO DAILY 06/18/20 [History] Albuterol Inhaler [Ventolin Hfa Inhaler] 1 puff INHALATION DIRECTED PRN 08/15/20 [History] Albuterol Nebulizer 1 dose INHALATION DIRECTED PRN 08/15/20 [History] HYDROcodone/APAP [[place] Elixir 7.5-325Mg/15Ml] 15 ml PO Q8H PRN #135 ml 08/23/20 [Rx] Omeprazole [PriLOSEC] 40 mg PO DAILY #30 capsule. 08/23/20 [Rx] Ondansetron Odt [Zofran Odt] 4 mg PO Q8HR PRN #9 tab 08/23/20 [Rx] Simethicone 40 mg/0.6 ml Drops [Mylicon Drops] 40 mg PO PCHS PRN #30 ml 08/23/20 [Rx] bisacodyL [Dulcolax] 5 mg PO DAILY PRN #10 tablet. 08/23/20 [Rx] Follow up [facility]ment(s[facility]Ref[place] [facility] [place] - 1 Week Activity/Diet/Wound Care/Special Instructions: No driving while taking [place] No lifting over 10 pounds You may shower. No soaking or tub baths for 2 weeks Very light activity until you are reevaluated at your follow up appointment with your surgeon No straws or carbonated beverages Cut or crush all pills to the size smaller than a TicTac Hold all vitamins for 1 week Discharge Disposition: HOME SELF-CARE
[2020-08-23 14:45] VITALS: BP 143/79; PULSE 71; TEMP 98
== END 2020-08-23 15:59 | disposition home or self-care (01) | DRG 621 ==
LOC: 2ORMAIN 06:59 → 4SSUR 12:47
PROVIDERS: ADMIT Surgery; ATTEND Surgery
PROC: 0DP64CZ Removal of Extraluminal Device from Stomach, Percutaneous Endoscopic Approach (ICD-10-PCS; principal; 2020-08-21 08:50)
PROC: 0DB64Z3 Excision of Stomach, Percutaneous Endoscopic Approach, Vertical (ICD-10-PCS; 2020-08-21 08:50)
DX: E66.01 Morbid (severe) obesity due to excess calories (principal); K21.9 Gastro-esophageal reflux disease without esophagitis; R13.10 Dysphagia, unspecified; K52.9 Noninfective gastroenteritis and colitis, unspecified; J45.909 Unspecified asthma, uncomplicated; I83.90 Asymptomatic varicose veins of unspecified lower extremity; F41.9 Anxiety disorder, unspecified; I10 Essential (primary) hypertension; G44.009 Cluster headache syndrome, unspecified, not intractable; F32.9 Major depressive disorder, single episode, unspecified; Z68.35 Body mass index [BMI] 35.0-35.9, adult; Z79.899 Other long term (current) drug therapy; Z87.442 Personal history of urinary calculi; Z90.710 Acquired absence of both cervix and uterus; Z98.84 Bariatric surgery status; Z87.891 Personal history of nicotine dependence; Z88.5 Allergy status to narcotic agent; Z80.3 Family history of malignant neoplasm of breast; Z82.49 Family history of ischemic heart disease and other diseases of the circulatory system
CPT/HCPCS: 64999; 74018; 74240; 76942; 80048; 80051; 82310; 82565; 83735; 84100; 84520; 85025; 88307; 94760; 94762

== ENCOUNTER → 2020-08-27 | Outpatient (CLI) | payer BC ==
[2020-08-27 15:13] VITALS: BP 130/80; PULSE 71; RESP 18; TEMP 98; BMI 34.9
--- NOTE | 2020-08-27 16:10 | P.HPBAR ---
Bariatric H&P - History & Physicial H&P Date: 08/27/20 History & Physicial: Visit/CC: follow up Patient initial contact: Initial weight: Initial weight in pounds: Height: 5 ft 1.5 in Initial BMI: Last weight: Current weight: 85.275 kg Current weight in pounds: 188.00 Current BMI: 34.9 [place] body weight (based on NIH guidelines): 48.761 kg Excess body weight loss: The patient is a 44 year-old F who presents for Bariatric Assessment. Patient presents today for follow-up. She is approximately 10 days postop. She feels well. She has no complaints. Past Medical History Past Medical History: Asthma, GERD/Reflux, Hypertension Additional Past Medical History / Comment(s): CLUSTER HEADACHES, LOWER BACK PAIN, HX PALPITATIONS, VARICOSE VEINS, KIDNEY STONES. History of Any Multi-Drug Resistant Organisms: None Reported Past Surgical History: Bariatric Surgery, Hysterectomy Additional Past Surgical History / Comment(s): lap band 2008 in [place], lithotripsy. lap band removal and gastric sleeve 08/21/2020 Past Anesthesia/Blood Transfusion Reactions: No Reported Reaction, Family History of Problems w/ Anesthesia Additional Past Anesthesia/Blood Transfusion Reaction / Comm: son=severe ponv Past Psychological History: Anxiety Smoking Status: Former smoker Past Alcohol Use History: Rare Additional Past Alcohol Use History / Comment(s): quit smoking 2008, smoked off and on since 17 yrs old, 2-3 cigarettes/day Past Drug Use History: None Reported - Past Family History Mother Family Medical History: Cancer Additional Family Medical History / Comment(s): breast cancer Father Family Medical History: Deep Vein Thrombosis (DVT) Surgical - Exam Vital Signs Temp Pulse Resp BP 98 F 71 18 130/80 08/27/20 15:01 08/27/20 15:01 08/27/20 15:01 08/27/20 15:01 - General well developed - Abdomen Abdomen: soft, non tender Bariatric Assessment & Plan Plan: Status post sleeve gastrectomy. Patient is doing quite well. She'll follow-up in 2 weeks. Bariatric Checklist Checklist: Plan: Checklist: EGD: 1. Hiatal hernia: 2. H. Pylori: HgbA1c: Vitamin D: Smoking: Primary care physician referral: Dr. Roth Psychiatry clearance: Cardiology clearance: Sleep study: Diet journal: VTE risk score: VTE risk level: Rehab needs at discharge:
== END ==
LOC: BARWHC3 14:47
PROVIDERS: ATTEND Surgery
DX: Z09 Encounter for follow-up examination after completed treatment for conditions other than malignant neoplasm (principal); Z98.84 Bariatric surgery status; J45.909 Unspecified asthma, uncomplicated; I10 Essential (primary) hypertension; K21.9 Gastro-esophageal reflux disease without esophagitis; F41.9 Anxiety disorder, unspecified; Z87.891 Personal history of nicotine dependence
CPT/HCPCS: 99211

== ENCOUNTER → 2020-09-10 | Outpatient (CLI) | payer BC ==
[2020-09-10 15:19] VITALS: BMI 31.6
[2020-09-10 15:42] VITALS: BP 116/77; PULSE 65; RESP 18; TEMP 97.8
== END ==
LOC: BARWHC3 13:18
PROVIDERS: ATTEND Surgery
DX: E66.01 Morbid (severe) obesity due to excess calories (principal); Z68.31 Body mass index [BMI] 31.0-31.9, adult; Z98.84 Bariatric surgery status; J45.909 Unspecified asthma, uncomplicated; K21.9 Gastro-esophageal reflux disease without esophagitis; I10 Essential (primary) hypertension; Z46.51 Encounter for fitting and adjustment of gastric lap band; Z87.891 Personal history of nicotine dependence; Z71.3 Dietary counseling and surveillance
CPT/HCPCS: 97803; 99211

== ENCOUNTER → 2020-09-24 | Outpatient (CLI) | payer BC ==
--- NOTE | 2020-09-24 13:38 | P.HPBAR ---
Bariatric H&P - History & Physicial H&P Date: 09/24/20 History & Physicial: Visit/CC: Patient initial contact: Initial weight: Initial weight in pounds: Height: Initial BMI: Last weight: 188 Current weight: 179 Current weight in pounds: Current BMI: [place] body weight (based on NIH guidelines): Excess body weight loss: The patient is a 44 year-old F who presents for Bariatric Assessment. She presents today for bariatric follow-up. She's lost pounds since her last visit. She's had some minimal GERD. Past Medical History Past Medical History: Asthma, GERD/Reflux, Hypertension Additional Past Medical History / Comment(s): CLUSTER HEADACHES, LOWER BACK PAIN, HX PALPITATIONS, VARICOSE VEINS, KIDNEY STONES. History of Any Multi-Drug Resistant Organisms: None Reported Past Surgical History: Bariatric Surgery, Hysterectomy Additional Past Surgical History / Comment(s): lap band 2008 in [place], lithotripsy. lap band removal and gastric sleeve 08/21/2020 Past Anesthesia/Blood Transfusion Reactions: No Reported Reaction, Family History of Problems w/ Anesthesia Additional Past Anesthesia/Blood Transfusion Reaction / Comm: son=severe ponv Past Psychological History: Anxiety Smoking Status: Former smoker Past Alcohol Use History: Rare Additional Past Alcohol Use History / Comment(s): quit smoking 2008, smoked off and on since 17 yrs old, 2-3 cigarettes/day Past Drug Use History: None Reported - Past Family History Mother Family Medical History: Cancer Additional Family Medical History / Comment(s): breast cancer Father Family Medical History: Deep Vein Thrombosis (DVT) Surgical - Exam - General well developed, well nourished, no distress - Eyes PERRL - ENT normal pinna - Neck no masses - Respiratory normal expansion - Cardiovascular Abnormal Heart Sounds: systolic murmur - Abdomen Abdomen: soft, non tender Bariatric Assessment & Plan Plan: History of conversion of LAP-BAND to sleeve gastrectomy. Patient did well. Her GERD is minimal will be observed. Bariatric Checklist Checklist: Plan: Checklist: EGD: 1. Hiatal hernia: 2. H. Pylori: HgbA1c: Vitamin D: Smoking: Primary care physician referral: Dr. Roth Psychiatry clearance: Cardiology clearance: Sleep study: Diet journal: VTE risk score: VTE risk level: Rehab needs at discharge:
[2020-09-24 13:40] VITALS: BP 125/72; PULSE 60; TEMP 98.2; BMI 28.4
[2020-09-24 15:25] LABS: HCT 38.5 % (34.0-46.0); HGB 13.4 gm/dL (11.4-16.0); MCH 31.3 pg (25.0-35.0); MCHC 34.7 g/dL (31.0-37.0); MCV 90.1 fL (80.0-100.0); Mean Platelet Volume 8.4; Platelet Count 242 k/uL (150-450); RBC 4.27 m/uL (3.80-5.40); RDW 13.1 % (11.5-15.5); WBC 6.2 k/uL (3.8-10.6)
[2020-09-25 11:46] LABS: Zinc, Serum 86 ug/dL (60-130)
[2020-09-25 19:14] LABS: % Iron Saturation 23.08 (12.00-45.00); African American GFR (CKD) 135.5 (60.0-200.0); Albumin/Globulin Ratio 2.22 (1.60-3.17); Anion Gap 12.1 mmol/L (4.00-12.00); Carbon Dioxide 28.9 mmol/L (21.6-31.8); Globulin 1.8 g/dL (1.6-3.3); Magnesium 1.7 mg/dL (1.5-2.4); Non-African American GFR(CKD) 116.9 (60.0-200.0); Potassium 3.3 mmol/L (3.5-5.5); Total Bilirubin 0.6 mg/dL (0.2-1.2); Total Protein 5.8 g/dL (6.2-8.2)
[2020-09-25 19:22] LABS: Ferritin 87.4 ng/mL (10.0-291.0)
[2020-09-25 19:37] LABS: Folate, Serum 17.2 ng/mL
[2020-09-26 03:45] LABS: Vitamin A 13 ug/dL (38-106)
[2020-09-26 11:00] LABS: Vit B1(Thiamine) 31 ug/L (38-122)
== END ==
LOC: BARWHC3 13:08
PROVIDERS: ATTEND Surgery
DX: E66.01 Morbid (severe) obesity due to excess calories (principal); Z68.28 Body mass index [BMI] 28.0-28.9, adult; D50.8 Other iron deficiency anemias; E55.9 Vitamin D deficiency, unspecified; T56.894A Toxic effect of other metals, undetermined, initial encounter; K90.9 Intestinal malabsorption, unspecified; J45.909 Unspecified asthma, uncomplicated; K21.9 Gastro-esophageal reflux disease without esophagitis; I10 Essential (primary) hypertension; Z98.84 Bariatric surgery status; Z46.51 Encounter for fitting and adjustment of gastric lap band
CPT/HCPCS: 80053; 82306; 82607; 82728; 82746; 83540; 83550; 83735; 84255; 84425; 84443; 84590; 84630; 85027; 99211

== ENCOUNTER → 2020-10-29 | Outpatient (CLI) | payer BC ==
[2020-10-29 13:53] VITALS: BP 133/79; PULSE 62; RESP 18; TEMP 98.2; BMI 30.2
--- NOTE | 2020-10-29 16:02 | P.HPBAR ---
Bariatric H&P - History & Physicial H&P Date: 10/29/20 History & Physicial: Visit/CC: follow up Patient initial contact: Initial weight: Initial weight in pounds: Height: 5 ft 1.5 in Initial BMI: Last weight: Current weight: 73.936 kg Current weight in pounds: 163.00 Current BMI: 30.2 [place] body weight (based on NIH guidelines): 48.761 kg Excess body weight loss: The patient is a 44 year-old F who presents for Bariatric Assessment. Patient rents today for sleeve gastrectomy fall. She's had some complaints of GERD. Her weight loss and excellent. She lost another 7 pounds. Past Medical History Past Medical History: Asthma, GERD/Reflux, Hypertension Additional Past Medical History / Comment(s): CLUSTER HEADACHES, LOWER BACK PAIN, HX PALPITATIONS, VARICOSE VEINS, KIDNEY STONES. History of Any Multi-Drug Resistant Organisms: None Reported Past Surgical History: Bariatric Surgery, Hysterectomy Additional Past Surgical History / Comment(s): lap band 2008 in [place], lithotripsy. lap band removal and gastric sleeve 08/21/2020 Past Anesthesia/Blood Transfusion Reactions: No Reported Reaction, Family History of Problems w/ Anesthesia Additional Past Anesthesia/Blood Transfusion Reaction / Comm: son=severe ponv Past Psychological History: Anxiety Smoking Status: Former smoker Past Alcohol Use History: Rare Additional Past Alcohol Use History / Comment(s): quit smoking 2008, smoked off and on since 17 yrs old, 2-3 cigarettes/day Past Drug Use History: None Reported - Past Family History Mother Family Medical History: Cancer Additional Family Medical History / Comment(s): breast cancer Father Family Medical History: Deep Vein Thrombosis (DVT) Surgical - Exam Vital Signs Temp Pulse Resp BP 98.2 F 62 18 133/79 10/29/20 13:46 10/29/20 13:46 10/29/20 13:46 10/29/20 13:46 - General well developed, well nourished, no distress - Eyes PERRL - ENT normal pinna - Neck no masses - Respiratory normal expansion - Cardiovascular Rhythm: regular - Abdomen Abdomen: soft, non tender Bariatric Assessment & Plan Plan: Status post gastric. Patient's girth is minimal will be observed. She'll follow-up in 4 weeks. Bariatric Checklist Checklist: Plan: Checklist: EGD: 1. Hiatal hernia: 2. H. Pylori: HgbA1c: Vitamin D: Smoking: Primary care physician referral: Dr. Roth Psychiatry clearance: Cardiology clearance: Sleep study: Diet journal: VTE risk score: VTE risk level: Rehab needs at discharge:
== END ==
LOC: BARWHC3 13:19
PROVIDERS: ATTEND Surgery
DX: E66.01 Morbid (severe) obesity due to excess calories (principal); I10 Essential (primary) hypertension; J45.909 Unspecified asthma, uncomplicated; Z87.891 Personal history of nicotine dependence
CPT/HCPCS: 99211

== ENCOUNTER → 2020-11-26 | Outpatient (CLI) | payer BC ==
[2020-11-26 13:29] VITALS: BP 126/70; PULSE 59; RESP 16; TEMP 97.4; BMI 29.2
[2020-11-26 14:14] LABS: HCT 39.1 % (34.0-46.0); HGB 13.4 gm/dL (11.4-16.0); MCH 31.2 pg (25.0-35.0); MCHC 34.1 g/dL (31.0-37.0); MCV 91.5 fL (80.0-100.0); Mean Platelet Volume 7.8; Platelet Count 258 k/uL (150-450); RBC 4.28 m/uL (3.80-5.40); WBC 4.9 k/uL (3.8-10.6)
[2020-11-26 22:12] LABS: % Iron Saturation 26.62 (12.00-45.00); African American GFR (CKD) 134.5 (60.0-200.0); Albumin 4.4 g/dL (3.80-4.90); Albumin/Globulin Ratio 2.2 (1.60-3.17); Anion Gap 8.8 mmol/L (4.00-12.00); Calcium 9.6 mg/dL (8.7-10.3); Carbon Dioxide 29.2 mmol/L (21.6-31.8); Magnesium 1.9 mg/dL (1.5-2.4); Non-African American GFR(CKD) 116.1 (60.0-200.0); Potassium 4.5 mmol/L (3.5-5.5); Total Bilirubin 0.6 mg/dL (0.3-1.2); Total Protein 6.4 g/dL (6.2-8.2)
[2020-11-26 22:22] LABS: Ferritin 61.9 ng/mL (10.0-291.0)
[2020-11-26 22:25] LABS: Folate, Serum 11.3 ng/mL
[2020-11-28 06:41] LABS: Zinc, Serum 72 ug/dL (60-130)
[2020-11-28 07:05] LABS: Vitamin A 26 ug/dL (38-106)
[2020-11-28 07:14] LABS: Vit B1(Thiamine) 34 ug/L (38-122)
== END | disposition home or self-care (01) ==
LOC: BARWHC3 12:56
PROVIDERS: ATTEND Surgery
DX: T56.894A Toxic effect of other metals, undetermined, initial encounter (principal); E66.01 Morbid (severe) obesity due to excess calories; D50.8 Other iron deficiency anemias; E44.0 Moderate protein-calorie malnutrition; E55.9 Vitamin D deficiency, unspecified
CPT/HCPCS: 80053; 82306; 82607; 82728; 82746; 83540; 83550; 83735; 84255; 84425; 84443; 84590; 84630; 85027; 99211

== ENCOUNTER → 2021-01-28 | Outpatient (CLI) | payer BC ==
[2021-01-28 13:12] VITALS: BP 122/77; PULSE 57; RESP 18; TEMP 98.1; BMI 26.7
--- NOTE | 2021-01-28 13:33 | P.HPBAR ---
Bariatric H&P - History & Physicial H&P Date: 01/28/21 History & Physicial: Visit/CC: follow up Patient initial contact: Initial weight: 89.358 kg Initial weight in pounds: 197.00 Height: 5 ft 1.5 in Initial BMI: 36.6 Last weight: Current weight: 65.363 kg Current weight in pounds: 144.10 Current BMI: 26.7 [place] body weight (based on NIH guidelines): 48.761 kg Excess body weight loss: 59.1% The patient is a 45 year-old F who presents for Bariatric Assessment. Patient presents for bariatric follow. She's had some complaints of GERD. She is an excellent weight loss. Past Medical History Past Medical History: Asthma, GERD/Reflux, Hypertension Additional Past Medical History / Comment(s): CLUSTER HEADACHES, LOWER BACK PAIN, HX PALPITATIONS, VARICOSE VEINS, KIDNEY STONES. History of Any Multi-Drug Resistant Organisms: None Reported Past Surgical History: Bariatric Surgery, Hysterectomy Additional Past Surgical History / Comment(s): lap band 2009 in [place], lithotripsy. lap band removal and gastric sleeve 08/21/2020 Past Anesthesia/Blood Transfusion Reactions: No Reported Reaction, Family History of Problems w/ Anesthesia Additional Past Anesthesia/Blood Transfusion Reaction / Comm: son=severe ponv Smoking Status: Former smoker - Past Family History Mother Family Medical History: Cancer Additional Family Medical History / Comment(s): breast cancer Father Family Medical History: Deep Vein Thrombosis (DVT) Surgical - Exam Vital Signs Temp Pulse Resp BP 98.1 F 57 L 18 122/77 01/28/21 13:10 01/28/21 13:10 01/28/21 13:10 01/28/21 13:10 - General well developed, well nourished, no distress - Eyes PERRL - ENT normal pinna - Neck no masses - Respiratory normal expansion - Cardiovascular Rhythm: regular - Abdomen Abdomen: soft, non tender Bariatric Assessment & Plan Plan: Status post sleeve gastrectomy. Patient did quite well. Her GERD is minimal will be observed. Bariatric Checklist Checklist: Plan: Checklist: EGD: 1. Hiatal hernia: 2. H. Pylori: HgbA1c: Vitamin D: Smoking: Primary care physician referral: Dr. Roth Psychiatry clearance: Cardiology clearance: Sleep study: Diet journal: VTE risk score: VTE risk level: Rehab needs at discharge:
== END | disposition home or self-care (01) ==
LOC: BARWHC3 12:58
PROVIDERS: ATTEND Surgery
DX: K21.9 Gastro-esophageal reflux disease without esophagitis (principal); E66.01 Morbid (severe) obesity due to excess calories; Z71.3 Dietary counseling and surveillance
CPT/HCPCS: 97803; 99211

== ENCOUNTER → 2021-03-18 | Outpatient (CLI) | payer BC ==
[2021-03-18 12:56] VITALS: BP 146/75; PULSE 59; RESP 16; TEMP 97.9; BMI 26.2
[2021-03-18 14:55] LABS: HCT 38.9 % (34.0-46.0); HGB 12.8 gm/dL (11.4-16.0); MCH 31.2 pg (25.0-35.0); MCHC 32.9 g/dL (31.0-37.0); MCV 94.9 fL (80.0-100.0); Platelet Count 305 k/uL (150-450); RDW 12.8 % (11.5-15.5)
[2021-03-19 12:47] LABS: Zinc, Serum 78 ug/dL (60-130)
[2021-03-19 14:18] LABS: Vitamin A 37 ug/dL (38-106)
[2021-03-19 14:49] LABS: % Iron Saturation 26.23 (12.00-45.00); African American GFR (CKD) 129.1 (60.0-200.0); Albumin 4.5 g/dL (3.8-4.9); Albumin/Globulin Ratio 2.15 (1.60-3.17); BUN/Creat Ratio 12.7 Ratio (12.00-20.00); Blood Urea Nitrogen 7.2 mg/dL (9.0-27.0); Calcium 9.7 mg/dL (8.7-10.3); Carbon Dioxide 27.2 mmol/L (21.6-31.8); Ferritin 61.8 ng/mL (10.0-291.0); Folate, Serum 4.1 ng/mL (4.40-31.00); Globulin 2.1 g/dL (1.6-3.3); Magnesium 2.2 mg/dL (1.5-2.4); Non-African American GFR(CKD) 111.4 (60.0-200.0); Potassium 4.2 mmol/L (3.5-5.5); Total Bilirubin 0.3 mg/dL (0.30-1.20); Total Protein 6.6 g/dL (6.2-8.2)
[2021-03-20 08:39] LABS: Vit B1(Thiamine) 50 ug/L (38-122)
[2021-03-23 09:59] LABS: Selenium 143 mcg/L (63-160)
--- NOTE | 2021-03-25 17:02 | P.HPBAR ---
Bariatric H&P - History & Physicial H&P Date: 03/18/21 History & Physicial: Visit/CC: SLEEVE F/U Patient initial contact: Initial weight: 89.358 kg Initial weight in pounds: 197.00 Height: 5 ft 1.5 in Initial BMI: 36.6 Last weight: Current weight: 63.957 kg Current weight in pounds: 141.00 Current BMI: 26.2 [place] body weight (based on NIH guidelines): 48.761 kg Excess body weight loss: 62.5% The patient is a 45 year-old F who presents for Bariatric Assessment. Patient presents today for sleeve gastric fall. She's had some mild GERD. She is approximately loss. Past Medical History Past Medical History: Asthma, GERD/Reflux, Hypertension Additional Past Medical History / Comment(s): CLUSTER HEADACHES, LOWER BACK PAIN, HX PALPITATIONS, VARICOSE VEINS, KIDNEY STONES. History of Any Multi-Drug Resistant Organisms: None Reported Past Surgical History: Bariatric Surgery, Hysterectomy Additional Past Surgical History / Comment(s): lap band 2008 in [place], lithotripsy. lap band removal and gastric sleeve 08/21/2020 Past Anesthesia/Blood Transfusion Reactions: No Reported Reaction, Family History of Problems w/ Anesthesia Additional Past Anesthesia/Blood Transfusion Reaction / Comm: son=severe ponv Past Psychological History: Anxiety Smoking Status: Former smoker Past Alcohol Use History: Rare Additional Past Alcohol Use History / Comment(s): quit smoking 2008, smoked off and on since 17 yrs old, 2-3 cigarettes/day Past Drug Use History: None Reported - Past Family History Mother Family Medical History: Cancer Additional Family Medical History / Comment(s): breast cancer Father Family Medical History: Deep Vein Thrombosis (DVT) Surgical - Exam Vital Signs Temp Pulse Resp BP 97.9 F 59 L 16 146/75 03/18/21 12:54 03/18/21 12:54 03/18/21 12:54 03/18/21 12:54 - General well developed, well nourished, no distress - Eyes PERRL - ENT normal pinna - Neck no masses - Respiratory normal expansion - Abdomen Abdomen: soft, non tender Results - Labs 03/18/21 13:54 03/18/21 13:54 Bariatric Assessment & Plan Plan: Resolving morbid obesity. Patient's weight loss excellent. Her GERD is minimal and will be observed. She'll follow-up in 4 weeks. Bariatric Checklist Checklist: Plan: Checklist: EGD: 1. Hiatal hernia: 2. H. Pylori: HgbA1c: Vitamin D: Smoking: Primary care physician referral: Dr. Roth Psychiatry clearance: Cardiology clearance: Sleep study: Diet journal: VTE risk score: VTE risk level: Rehab needs at discharge:
== END | disposition home or self-care (01) ==
LOC: BARWHC3 12:42
PROVIDERS: ATTEND Surgery
DX: E66.01 Morbid (severe) obesity due to excess calories (principal); D50.8 Other iron deficiency anemias; E55.9 Vitamin D deficiency, unspecified; T56.894A Toxic effect of other metals, undetermined, initial encounter; K90.9 Intestinal malabsorption, unspecified
CPT/HCPCS: 80053; 82306; 82607; 82728; 82746; 83540; 83550; 83735; 84255; 84425; 84443; 84590; 84630; 85027; 99211

== ENCOUNTER → 2021-06-17 | Outpatient (CLI) | payer BC ==
[2021-06-17 13:50] VITALS: BP 117/75; PULSE 56; RESP 18; TEMP 97.8; BMI 24.7
--- NOTE | 2021-06-18 10:12 | P.GSHP ---
History of Present Illness H&P Date: 06/17/21 Chief Complaint: Right upper quadrant pain, GERD Patient's placed on pain. She states her pain symptoms associated with food. She also had some mild GERD. Past Medical History Past Medical History: Asthma, GERD/Reflux, Hypertension Additional Past Medical History / Comment(s): CLUSTER HEADACHES, LOWER BACK PAIN, HX PALPITATIONS, VARICOSE VEINS, KIDNEY STONES. History of Any Multi-Drug Resistant Organisms: None Reported Past Surgical History: Bariatric Surgery, Hysterectomy Additional Past Surgical History / Comment(s): lap band 2009 in [place], lithotripsy. lap band removal and gastric sleeve 08/21/2020 Past Anesthesia/Blood Transfusion Reactions: No Reported Reaction, Family History of Problems w/ Anesthesia Additional Past Anesthesia/Blood Transfusion Reaction / Comment(s): son=severe ponv Past Psychological History: Anxiety Smoking Status: Former smoker Past Alcohol Use History: Rare Additional Past Alcohol Use History / Comment(s): quit smoking 2008, smoked off and on since 17 yrs old, 2-3 cigarettes/day Past Drug Use History: None Reported - Past Family History Mother Family Medical History: Cancer Additional Family Medical History / Comment(s): breast cancer Father Family Medical History: Deep Vein Thrombosis (DVT) Medications and Allergies Home Medications Medication Instructions Recorded Confirmed Type Albuterol Inhaler [Ventolin Hfa 1 puff INHALATION DIRECTED PRN 08/15/20 06/17/21 History Inhaler] Albuterol Nebulizer 1 dose INHALATION DIRECTED PRN 08/15/20 06/17/21 History Omeprazole [PriLOSEC] 40 mg PO DAILY #30 capsule. 08/23/20 06/17/21 Rx Allergies Allergy/AdvReac Type Severity Reaction Status Date / Time hydrocodone [From [place]] Allergy Itching Verified 06/17/21 13:38 Surgical - Exam Vital Signs Temp Pulse Resp BP 97.8 F 56 L 18 117/75 06/17/21 13:37 06/17/21 13:37 06/17/21 13:37 06/17/21 13:37 - General well developed, well nourished, no distress - Eyes PERRL - ENT normal pinna - Neck no masses - Respiratory normal expansion - Cardiovascular Rhythm: regular - Abdomen Abdomen: soft, non tender Assessment and Plan Assessment: Patient will undergo ultrasound of the gallbladder and HIDA scan to evaluate for possible cholelithiasis or biliary dysfunction. Her GERD is minimal will be observed. She'll follow-up in 4 weeks.
== END | disposition home or self-care (01) ==
LOC: BARWHC3 13:18
PROVIDERS: ATTEND Surgery
DX: K21.9 Gastro-esophageal reflux disease without esophagitis (principal)
CPT/HCPCS: 99211

== ENCOUNTER → 2021-07-11 | Outpatient (CLI) | payer BC ==
--- NOTE | 2021-07-11 08:35 | US ---
EXAMINATION TYPE: US gallbladder DATE OF EXAM: 07/11/2021 COMPARISON: NONE CLINICAL HISTORY: 45-year-old female R10.11 RIGHT UPPER QUADRANT PAIN. Right lateral abdomen pain wit h sneezing or coughing and noted post gastric sleeve bypass. Patient having Hida Scan today. TECHNIQUE: Multiple sonographic images of the right upper quadrant are obtained. FINDINGS: EXAM MEASUREMENTS: Liver Length: 15.7 cm Gallbladder Wall: 0.2 cm CBD: 0.2 cm Right Kidney: 10.2 x 5.4 x 4.0 cm Pancreas: No gross abnormality. Liver: Echogenic, 1 cm round mass noted inferior right lobe. No other focal liver lesion. Overall ho mogeneous parenchyma echotexture. Gallbladder: wnl Evidence for sonographic Bui's sign: painful here in LLD. CBD: wnl Right Kidney: wnl IMPRESSION: 1. A 1 cm echogenic lesion of the inferior right liver lobe most likely represents a benign hemangiom a. Three-month follow-up ultrasound to ensure stability. 2. No gallstones or biliary ductal dilatation. However, the machine fitter notes that the patient is laura nful while scanning over the gallbladder. We note a HIDA scan has already been ordered.
--- NOTE | 2021-07-11 11:08 | NM ---
EXAMINATION TYPE: NM hepatobiliary w CCK DATE OF EXAM: 07/11/2021 COMPARISON: Ultrasound gallbladder 07/11/2021 HISTORY: Right upper quadrant pain TECHNIQUE: After the intravenous administration of 4.3 mCi Tc 99m Mebrofenin hepatobiliary scintigrap hy is performed. Immediate images post injection. FINDINGS: There is satisfactory initial accumulation of tracer by the liver. The gallbladder is visualized wit hin 8 minutes. The small bowel activity is noted within 10 minutes. At one hour CCK was administere d, patient was injected with 1.2 mcg of Kinevac, and gallbladder ejection fraction is calculated at 9 2 %, above the upper limit of the normal range. Therefore there is no scintigraphic evidence of cyst ic or common bile duct obstruction to suggest acute cholecystitis or gallbladder dyskinesia. IMPRESSION: Findings could represent hyperdynamic gallbladder
== END | disposition home or self-care (01) ==
LOC: RADUSWWP 07:27
PROVIDERS: ATTEND Surgery
DX: R10.11 Right upper quadrant pain (principal)
CPT/HCPCS: 76705; 78227; A9537; J2805

== ENCOUNTER → 2021-08-22 | Outpatient (CLI) | payer BC ==
[2021-08-22 18:24] LABS: HCT 41.6 % (37.2-46.3); HGB 13.4 g/dL (12.0-15.0); MCHC 32.2 g/dL (32.0-37.0); MCV 93.1 fL (80.0-97.0); Mean Platelet Volume 10.6 fL (9.5-12.2); NRBC Per 100 WBC 0 /100 WBCS (0.0-0.0); Platelet Count 321 X 10*3/uL (140-440); RBC 4.47 X 10*6/uL (4.10-5.20); RDW 13.2 % (11.5-14.5); WBC 7.53 X 10*3/uL (4.50-10.00)
[2021-08-22 18:33] LABS: % Iron Saturation 32.53 (12.00-45.00); ALT 23 U/L (8-44); AST 20 U/L (13-35); African American GFR (CKD) 126.7 (60.0-200.0); Albumin 4.9 g/dL (3.8-4.9); Albumin/Globulin Ratio 2.04 (1.60-3.17); Alkaline Phosphatase 104 U/L (41-126); Blood Urea Nitrogen 12.6 mg/dL (9.0-27.0); Calcium 9.9 mg/dL (8.7-10.3); Chloride 101 mmol/L (96-109); Chol/HDL Ratio 4.57 Ratio; Globulin 2.4 g/dL (1.6-3.3); Glucose 103 mg/dL (70-110); Iron 102 ug/dL (50-170); LDL Cholesterol,Calculated 182.3 mg/dL (0.0-131.0); Magnesium 2.2 mg/dL (1.5-2.4); Non-African American GFR(CKD) 109.3 (60.0-200.0); Potassium 4.3 mmol/L (3.5-5.5); Sodium 141 mmol/L (135-145); Total Iron Binding Capacity 314 ug/dL (228-460); Total Protein 7.3 g/dL (6.2-8.2)
[2021-08-23 13:30] LABS: Zinc, Serum 101 ug/dL (60-130)
== END | disposition home or self-care (01) ==
LOC: LABWHC1 11:44
PROVIDERS: ATTEND Nurse Practitioner Family
DX: Z00.00 Encounter for general adult medical examination without abnormal findings (principal); Z13.220 Encounter for screening for lipoid disorders; E66.01 Morbid (severe) obesity due to excess calories; D50.8 Other iron deficiency anemias; E55.9 Vitamin D deficiency, unspecified; T56.894A Toxic effect of other metals, undetermined, initial encounter
CPT/HCPCS: 36415; 80053; 80061; 82306; 82607; 82728; 82746; 83540; 83550; 83735; 84255; 84425; 84443; 84590; 84630; 85027

== ENCOUNTER → 2023-01-26 | Outpatient (CLI) | payer BC ==
[2023-01-26 14:01] VITALS: BP 145/71; PULSE 61; TEMP 97.9; BMI 22.1
--- NOTE | 2023-01-27 14:20 | P.HPBAR ---
Bariatric H&P - History & Physicial H&P Date: 01/26/23 History & Physicial: Visit/CC: F/U Patient initial contact: Initial weight: 89.358 kg Initial weight in pounds: 197.00 Height: 5 ft 3 in Initial BMI: 34.9 Last weight: Current weight: 56.699 kg Current weight in pounds: 125.00 Current BMI: 22.1 [place] body weight (based on NIH guidelines): 52.163 kg Excess body weight loss: 87.8% The patient is a 47 year-old F who presents for Bariatric Assessment.Patient presents today for bariatric follow-up. She is lost 4 pounds since her last visit. She has had approxione 100 pounds of weight loss overall. She has some minimal GERD. She denies any dysphagia. Past Medical History Past Medical History: Asthma, GERD/Reflux, Hypertension Additional Past Medical History / Comment(s): CLUSTER HEADACHES, CHRONICBACK PA IN, HX PALPITATIONS WITH COVID., VARICOSE VEINS, KIDNEY STONES., HTN WAS RESOLVED WITH WEIGHT LOSS., GASTRIC SLEEVE. History of Any Multi-Drug Resistant Organisms: None Reported Past Surgical History: Bariatric Surgery, Cholecystectomy, Hysterectomy Additional Past Surgical History / Comment(s): lap band 2009 in [place], lithotripsy. lap band removal and gastric sleeve 08/21/2020, RECTOCELE REPAIR WITH HYSTERECTOMY., TUMMY TUCK AND BREAST LIFT Past Anesthesia/Blood Transfusion Reactions: No Reported Reaction, Family History of Problems w/ Anesthesia, Motion Sickness Additional Past Anesthesia/Blood Transfusion Reaction / Comm: sons =severe ponv. father=ponv. Past Psychological History: Anxiety, Depression Smoking Status: Former smoker Past Alcohol Use History: Rare Additional Past Alcohol Use History / Comment(s): quit smoking 2008, smoked off and on since 17 yrs old, 2-3 cigarettes/day Past Drug Use History: None Reported - Past Family History Mother Family Medical History: Cancer, CVA/TIA Additional Family Medical History / Comment(s): breast cancer, multiple strokes Father Family Medical History: Cancer, Deep Vein Thrombosis (DVT) Additional Family Medical History / Comment(s): skin cancer Surgical - Exam Vital Signs Temp Pulse BP 97.9 F 61 145/71 01/26/23 13:54 01/26/23 13:54 08/21/23 13:54 - General well developed, well nourished, no distress - Eyes PERRL - Cardiovascular Rhythm: regular - Abdomen Abdomen: soft, non tender Bariatric Assessment & Plan Plan: Status post sleeve gastrectomy. Patient has resolved morbid obesity. Her GERD is minimal and will be observed. Bariatric Checklist Checklist: Plan: Checklist: EGD: 1. Hiatal hernia: 2. H. Pylori: HgbA1c: Vitamin D: Smoking: Primary care physician referral: Dr. Roth Psychiatry clearance: Cardiology clearance: Sleep study: Diet journal: VTE risk score: VTE risk level: Rehab needs at discharge:
== END ==
LOC: BARWHC3 13:30
PROVIDERS: ATTEND Surgery
DX: K21.9 Gastro-esophageal reflux disease without esophagitis (principal); J45.909 Unspecified asthma, uncomplicated; G89.29 Other chronic pain; Z86.16 Personal history of COVID-19; Z98.84 Bariatric surgery status; Z87.891 Personal history of nicotine dependence; Z88.0 Allergy status to penicillin; Z88.5 Allergy status to narcotic agent; Z79.51 Long term (current) use of inhaled steroids; Z48.815 Encounter for surgical aftercare following surgery on the digestive system
CPT/HCPCS: 99211

== ENCOUNTER → 2024-02-01 | Outpatient (CLI) | payer BC ==
[2024-02-01 10:52] VITALS: BP 137/74; PULSE 68; RESP 16; TEMP 97.8
[2024-02-01 16:10] LABS: HCT 42.4 % (37.2-46.3); HGB 13.5 g/dL (12.0-15.0); MCHC 31.8 g/dL (32.0-37.0); MCV 94.2 FL (80.0-97.0); Mean Platelet Volume 10.3 FL (9.5-12.2); NRBC Per 100 WBC 0 X 10*3/uL (0.00-0.01); Platelet Count 297 X 10*3/uL (140-440); RDW 12.5 % (11.5-14.5); WBC 4.96 X 10*3/uL (4.50-10.00)
[2024-02-01 16:43] LABS: % Iron Saturation 31.75 (12.00-45.00); ALT 24 U/L (8-44); AST 29 U/L (13-35); Albumin 4.8 g/dL (3.8-4.9); Albumin/Globulin Ratio 2.09 Ratio (1.60-3.17); Alkaline Phosphatase 68 U/L (41-126); Calcium 9.6 mg/dL (8.7-10.3); Carbon Dioxide 25.8 mmol/L (21.6-31.8); Chloride 101 mmol/L (96-109); Ferritin 36.1 ng/mL (10.0-291.0); Globulin 2.3 g/dL (1.6-3.3); Glucose 92 mg/dL (70-110); Iron 120 UG/DL (50-170); Magnesium 2.3 mg/dL (1.5-2.4); Potassium 3.5 mmol/L (3.5-5.5); Sodium 143 mmol/L (135-145); Total Bilirubin 0.5 mg/dL (0.3-1.2); Total Iron Binding Capacity 378 UG/DL (228-460); Total Protein 7.1 g/dL (6.2-8.2)
--- NOTE | 2024-02-03 08:01 | P.HPBAR ---
Bariatric H&P - History & Physicial H&P Date: 02/01/24 History & Physicial: Visit/CC: f/u appt Patient initial contact: Initial weight: 89.358 kg Initial weight in pounds: 197.00 Height: 5 ft 3 in Initial BMI: Last weight: Current weight: 58.513 kg Current weight in pounds: 129.00 Current BMI: [place] body weight (based on NIH guidelines): Excess body weight loss: The patient is a 48 year-old F who presents for Bariatric Assessment. Patient presents today for bariatric follow-up. She has been doing well for the last year. She has no complaints. She has gained 4 pounds. She has had normal gerd. Past Medical History Past Medical History: Asthma, GERD/Reflux, Hypertension Additional Past Medical History / Comment(s): CLUSTER HEADACHES, CHRONICBACK PAIN, HX PALPITATIONS WITH COVID., VARICOSE VEINS, KIDNEY STONES., HTN WAS RESOLVED WITH WEIGHT LOSS., GASTRIC SLEEVE. History of Any Multi-Drug Resistant Organisms: None Reported Past Surgical History: Bariatric Surgery, Cholecystectomy, Hysterectomy Additional Past Surgical History / Comment(s): lap band 2009 in [place], lithotripsy. lap band removal and gastric sleeve 08/21/2020, RECTOCELE REPAIR WITH HYSTERECTOMY., TUMMY TUCK AND BREAST LIFT Past Anesthesia/Blood Transfusion Reactions: No Reported Reaction, Family History of Problems w/ Anesthesia, Motion Sickness Additional Past Anesthesia/Blood Transfusion Reaction / Comm: sons =severe ponv. father=ponv. Past Psychological History: Anxiety, Depression Smoking Status: Former smoker Past Alcohol Use History: Rare Additional Past Alcohol Use History / Comment(s): quit smoking 2008, smoked off and on since 17 yrs old, 2-3 cigarettes/day Past Drug Use History: None Reported - Past Family History Mother Family Medical History: Cancer, CVA/TIA Additional Family Medical History / Comment(s): breast cancer, multiple strokes Father Family Medical History: Cancer, Deep Vein Thrombosis (DVT) Additional Family Medical History / Comment(s): skin cancer Surgical - Exam Vital Signs Temp Pulse Resp BP 97.8 F 68 16 137/74 02/01/24 10:41 02/01/24 10:41 02/01/24 10:41 02/01/24 10:41 - General well developed, well nourished, no distress - Eyes PERRL - ENT normal pinna, normal nares - Neck no masses - Respiratory normal expansion - Cardiovascular Rhythm: regular - Abdomen Abdomen: soft, non tender Results - Labs 02/01/24 11:28 02/01/24 11:28 Bariatric Assessment & Plan Plan: Status post sleeve gastrectomy. Patient's gerd is minimal [place]. She will follow-up in 6 months. She will have her bariatric labs checked today. Bariatric Checklist Checklist: Plan: Checklist: EGD: 1. Hiatal hernia: 2. H. Pylori: HgbA1c: Vitamin D: Smoking: Primary care physician referral: Dr. Roth Psychiatry clearance: Cardiology clearance: Sleep study: Diet journal: VTE risk score: VTE risk level: Rehab needs at discharge:
== END ==
LOC: BARWHC3 10:31
PROVIDERS: ATTEND Surgery
DX: E66.01 Morbid (severe) obesity due to excess calories
CPT/HCPCS: 80053; 82306; 82607; 82728; 82746; 83540; 83550; 83735; 84255; 84425; 84443; 84590; 84630; 85027; 99211